=== PATIENT | male | born 1985 | race Caucasian/White ===

== ENCOUNTER → 2019-05-08 | Outpatient (CLI) | payer OTHER ==
--- NOTE | 2019-05-08 19:59 | REP ---
Two-view chest: 05/08/2019. Indication: Fever. Comparison: None. Findings: The lungs are clear. There is no pleural effusion or pneumothorax. The cardiac silhouette is unremarkable. Impression: Clear lungs. Electronically Signed by Mick Aviles DO 05/08/2019 07:51 P
== END ==
LOC: M LRY 18:23
PROVIDERS: ATTEND Physician Assistant
DX: R50.9 Fever, unspecified (principal)

== ENCOUNTER 2020-07-01 12:34 | Emergency (ER) | payer OTHER ==
[~2020-07-01] VITALS: Ht 188 cm; Wt 117.5 kg
[2020-07-01 12:35] VITALS: BP 151/72
[2020-07-01] MEDS ORDERED: SIMV10TA21 (13:31)
[2020-07-01] MEDS ORDERED: LISI40TA (13:31)
[2020-07-01] MEDS ORDERED: [UNRECOGNIZED DRUG - CODE] (13:31)
[2020-07-01 16:01] VITALS: O2SAT 99
== END 2020-07-01 16:00 | disposition home or self-care (01) ==
LOC: M ED 12:34
DX: U07.1 COVID-19 (principal); Z20.828 Contact with and (suspected) exposure to other viral communicable diseases; I10 Essential (primary) hypertension; E78.5 Hyperlipidemia, unspecified; R62.50 Unspecified lack of expected normal physiological development in childhood; Z91.018 Allergy to other foods; Z88.8 Allergy status to other drugs, medicaments and biological substances

== ENCOUNTER → 2024-04-09 | Outpatient (CLI) | payer OTHER ==
[~2024-04-09] MED LIST: E-Z-GAS II EFFERVESCENT PACKET (SODIUM BICARB./CITRIC ACID/SIMETHICONE) As Ordered ONE; E-Z-HD 98% w/w 340GM SUSP BTL As Ordered ONE; E-Z-PAQUE 96% w/w SUSP 176GM BTL As Ordered ONE; LISI40TA4; SIMV10TA21; [UNRECOGNIZED DRUG - CODE]
== END ==
LOC: M RAD 10:31
PROVIDERS: ATTEND Registered Nurse
DX: R13.10 Dysphagia, unspecified (principal); K44.9 Diaphragmatic hernia without obstruction or gangrene; K21.9 Gastro-esophageal reflux disease without esophagitis